=== PATIENT | male | born 1965 | race Caucasian/White ===

== ENCOUNTER 2020-08-19 11:36 | Observation (INO) ==
[2020-08-19] MEDS ORDERED: TUSSIONEX PENNKINETIC SUSP PO PRN (13:29)
[2020-08-19] MEDS ORDERED: REMDESIVIR 200 MG in NS 250 ML IV 250 ML IV NR (13:29)
[2020-08-19] MEDS ORDERED: NS 1/2 1000 ML IV 1,000 ML IV ONE (13:34)
[2020-08-19] MEDS: NS 1/2 1000 ML IV 1,000 ML IV SCH (13:48)
[2020-08-19] MEDS: LEVAQUIN PREMIX IV 750 MG 750 MG/150 ML BAG IV SCH (13:53)
[2020-08-19] MEDS: ROBITUSSIN DM PO SCH ×3 (13:54→21:47)
[2020-08-19] MEDS: TESSALON PERLES PO SCH ×2 (13:54→21:48)
[2020-08-19] MEDS: VSL#3 PO SCH (13:54)
[2020-08-19] MEDS: LOVENOX INJ 30 MG SYR SC SCH ×2 (13:54→21:46)
[2020-08-19] MEDS: DUONEB 0.5 MG/3 MG (3 mL) NEB SCH ×2 (14:20→21:22)
[2020-08-19] MEDS: PULMICORT NEB TX 0.5 MG NEB SCH ×2 (14:20→21:22)
[2020-08-19 14:30] VITALS: BMI 29.8
[2020-08-19 15:00] LABS: CKMB % 1.6 % (<4); CREATINE KINASE 67 Units/L (39-308); CREATINE KINASE MB 1.1 ng/mL (0-4.0); TROPONIN I < 0.02 ng/mL (0-1.5)
[2020-08-19] MEDS: SOLU-Medrol 40 MG VIAL IVP SCH ×2 (21:47→21:48)
[2020-08-20] MEDS: TESSALON PERLES PO SCH ×3 (05:26→21:57)
[2020-08-20] MEDS: SOLU-Medrol 40 MG VIAL IVP SCH ×3 (05:26→21:57)
[2020-08-20 05:33] LABS: ABG BASE EXCESS 2.2 mmol/L (-2.0-2.0); ABG HCO3 26.5 mmol/L (22-26)
[2020-08-20] MEDS: DUONEB 0.5 MG/3 MG (3 mL) NEB SCH (05:35)
[2020-08-20 05:36] LABS: BASOPHILS % (AUTO) 0.3 % (0.2-1.0); EOSINOPHILS % (AUTO) 0.1 % (0.9-2.9); HEMATOCRIT 41.1 % (42.0-54.0); HEMOGLOBIN 14.3 g/dL (13.5-18.0); LYMPHOCYTES # (AUTO) 0.7 X10^3/uL (1.3-2.9); LYMPHOCYTES % (AUTO) 14.3 % (21.0-51.0); MEAN CORPUSCULAR HEMOGLOBIN 30.1 pg (27.0-34.0); MEAN CORPUSCULAR HGB CONC 34.8 g/dL (33.0-35.0); MEAN CORPUSCULAR VOLUME 86.6 fL (80.0-100.0); MEAN PLATELET VOLUME 8.6 fL (7.4-11.0); MONOCYTES # (AUTO) 0.2 x10^3/uL (0.3-0.8); MONOCYTES % (AUTO) 3.3 % (0.0-13.0); NEUTROPHILS # (AUTO) 3.8 x10^3/uL (2.2-4.8); PLATELET COUNT 277 X10^3/uL (150.0-450.0); RED BLOOD COUNT 4.74 X10^6/uL (4.7-6.0); RED CELL DISTRIBUTION WIDTH 12.7 % (11.6-16.5); WHITE BLOOD COUNT 4.6 X10^3/uL (3.6-10.0)
[2020-08-20 05:51] LABS: ALANINE AMINOTRANSFERASE 125 Units/L (12-78); ALBUMIN 3.2 g/dL (3.4-5.0); ALKALINE PHOSPHATASE 84 Units/L (46-116); ASPARTATE AMINO TRANSFERASE 37 Units/L (15-37); BLOOD UREA NITROGEN 12 mg/dL (7-18); CALCIUM 8.7 mg/dL (8.5-10.1); CARBON DIOXIDE 26.6 mmol/L (21-32); CHLORIDE 102 mmol/L (98-107); COR CA(FOR HYPOALB) 9.3 mg/dL (8.5-10.1); COR NA(FOR HYPERGLY) 140 mmol/L (136-145); CREATININE 1.23 mg/dL (0.70-1.30); SODIUM 138 mmol/L (136-145); TOTAL PROTEIN 7.4 g/dL (6.4-8.2); eGFR NON BLACK RACES > 60 (>60)
--- NOTE | 2020-08-20 05:59 | RAD ---
HISTORYSOBSTUDYCHEST, 1 [id number]/10/2020FINDINGSThe trachea is midline. The cardiac silhouette is unremarkable . The lungs are clear without focal infiltrate or effusion. The bony thorax is unremarkable.IMPRESSIONNo acute cardiopulmonary disease.Electronically signed by: Earlene Razo (Aug 20, 2020 05:57:20)
[2020-08-20] MEDS: ROBITUSSIN DM PO SCH ×4 (08:12→21:57)
[2020-08-20] MEDS: REMDESIVIR 100 MG in NS 250 ML IV 250 ML IV SCH (08:12)
[2020-08-20] MEDS: VSL#3 PO SCH (08:12)
[2020-08-20] MEDS: LOVENOX INJ 30 MG SYR SC SCH ×2 (08:12→21:53)
[2020-08-20] MEDS: LEVAQUIN PREMIX IV 750 MG 750 MG/150 ML BAG IV SCH (08:12)
[2020-08-20] MEDS: NS 1/2 1000 ML IV 1,000 ML IV SCH ×2 (08:13→21:53)
[2020-08-20] MEDS ORDERED: NS 1/2 1000 ML IV 1,000 ML IV ONE (08:14)
[2020-08-20] MEDS: PULMICORT NEB TX 0.5 MG NEB SCH ×2 (09:10→21:25)
--- NOTE | 2020-08-20 12:10 | DR.H&P ---
H&P - History & Physical for Day of: H&P Date: 08/19/20 - Chief Complaint Chief Complaint: COUGH, SOB, WEAKNESS, FEVER - History of Present Illness History of Present Illness: IS A 55 YEAR OLD PATIENT OF OURS WHO PRESENTED TO THE HOSPITAL A DIRECT ADMISSION DUE TO COMPLAINTS OF PERSISTENT COUGH, SHORTNESS OF BREATH, WEAKNESS, AND FEVER. SYMPTOMS STARTED ON 08/02/20. HE REPORTS THAT HIS OXYGEN SATURATIONS AT HOME HAVE BEEN RANGING FROM 89-93% ON ROOM AIR. HE HAS FINISHED A MEDROL DOSEPACK, AZITHROMYCIN, AND PLAQUENIL REGIMEN. ON ARRIVAL TO THE HOSPITAL, VITALS WERE 98.5-82-20-90%-119/78. LABS WERE OBTAINED. ABNORMAL LAB VALUES INCLUDE THE FOLLOWING: GLUCOSE 109, FERRITIN 1323, AST 38, ALT 126, CRP 61.20. CARDIAC ENZYMES WERE WITHIN NORMAL LIMITS. COVID-19 POSITIVE. BLOOD AND SPUTUM CULTURES WERE SET UP. AN ABG WAS OBTAINED AND REVEALED: PH 7.500, PC02 37, P02 69, HC03 28.9, 02 SAT 95, BASE EXCESS 5.5, FI02 21.0. A CHEST XRAY WAS OBTAINED AND REVEALED: Patchy right base worse than left base airspace disease consistent with pneumonia such as covid 19. HE WAS STARTED ON 1/2NS AT 75 ML/HR, REMDESIVIR 200MG IV X 1 DOSE THEN 100 MG IV DAILY, LEVAQUIN 750MG IV DAILY, SOLU-MEDROL 80MG IV Q8H, XOPENEX NEB TX TID, PULMICORT NEBS BID, TUSSIONEX 5ML PO Q12H PRN, LOVENOX 30MG SC BID, ROBITUSSIN 10ML PO QID, TESSALON PERLES 200MG PO TID, AND PROBIOTICS. OTHERWISE, WE PLAN TO FOLLOW UP WITH AM LABS AND CHEST XRAY AND CONTINUE TO MONITOR. - Past Medical History Past Medical History: Hypertension - Past Surgical History Surgical History: Appendectomy - Family History Family Medical History: Diabetes Mellitus, Cancer - Social History Does patient currently use any type of tobacco product: No Have you used tobacco products in the last 12 months: No Type of Tobacco Use: None Alcohol Use: None Drug Use: None - Medications Home Medications: No Known Drug Allergies Allergy (Verified 10/25/19 10:51) CONTINUE taking the following medications aspirin 81 mg PO Q OTHER DAY 08/19/20 [History] atorvastatin [Lipitor] 10 mg PO QHS 08/19/20 [History] hydrochlorothiazide 25 mg PO QAM 08/19/20 [History] lisinopril [Prinivil] 10 mg PO DAILY 08/19/20 [History] metoprolol succinate [Toprol XL] 12.5 mg PO HS 08/19/20 [History] multivitamin with iron-mineral [[facility]] 1 tab PO DAILY 08/19/20 [History] - Review of Systems Constitutional: Fever, Chills, Weakness Eyes: No Symptoms Reported ENT: No Symptoms Reported Respiratory: See HPI, Cough, Shortness of Breath Cardiovascular: No Symptoms Reported Gastrointestinal: No Symptoms Reported Genitourinary: No Symptoms Reported Musculoskeletal: No Symptoms Reported Skin: No Symptoms Reported Neurological: Weakness - Physical Exam Vital Signs: Temperature 98.3 F Pulse Rate 113 Respiratory Rate 20 Blood Pressure 129/75 O2 Sat by Pulse Oximetry 93 Oriented: Normal Eyes: Normal Ear: Normal Nose: Normal Throat: Normal Respiratory: Diminished Throughout Cardiovascular: Normal : Normal Auscultation: Bowel Sounds: Normal Palpation: Normal Tenderness: Normal Skin: Normal Musculoskeletal: Normal Psychiatric: Normal Mood Description: Calm Affect: Normal Speech Pattern: Clear - Assessment/Plan (1) Pneumonia Qualifiers: Pneumonia type: due to unspecified organism Laterality: bilateral Lung location: unspecified part of lung Qualified Code(s): J18.9 - Pneumonia, unspecified organism Status: Acute Plan: ADMIT, 1/2NS AT 75 ML/HR, REMDESIVIR 200MG IV X 1 DOSE THEN 100 MG IV DAILY, LEVAQUIN 750MG IV DAILY, SOLU-MEDROL 80MG IV Q8H, XOPENEX NEB TX TID, PULMICORT NEBS BID, TUSSIONEX 5ML PO Q12H PRN, LOVENOX 30MG SC BID, ROBITUSSIN 10ML PO QID, TESSALON PERLES 200MG PO TID, AND PROBIOTICS. (2) COVID-19 Status: Acute (3) Hypoxia Status: Acute - Allergies Allergies/Adverse Reactions: Allergies Allergy/AdvReac Type Severity Reaction Status Date / Time No Known Drug Allergies Allergy Verified 10/25/19 10:51
[2020-08-20] MEDS: XOPENEX 1.25 MG/3 ML NEBULE NEB SCH ×2 (13:45→21:25)
[2020-08-21] MEDS ORDERED: NS 1/2 1000 ML IV 1,000 ML IV ONE (04:16)
[2020-08-21 05:33] LABS: BASOPHILS % (AUTO) 0.3 % (0.2-1.0); HEMATOCRIT 37.6 % (42.0-54.0); HEMOGLOBIN 12.8 g/dL (13.5-18.0); LYMPHOCYTES # (AUTO) 1.1 X10^3/uL (1.3-2.9); LYMPHOCYTES % (AUTO) 8.1 % (21.0-51.0); MEAN CORPUSCULAR HEMOGLOBIN 29.8 pg (27.0-34.0); MEAN CORPUSCULAR HGB CONC 34.2 g/dL (33.0-35.0); MEAN CORPUSCULAR VOLUME 87.1 fL (80.0-100.0); MEAN PLATELET VOLUME 8.9 fL (7.4-11.0); MONOCYTES # (AUTO) 0.8 x10^3/uL (0.3-0.8); MONOCYTES % (AUTO) 5.7 % (0.0-13.0); NEUTROPHILS # (AUTO) 11.7 x10^3/uL (2.2-4.8); NEUTROPHILS % (AUTO) 85.9 % (42.0-75.0); PLATELET COUNT 329 X10^3/uL (150.0-450.0); RED BLOOD COUNT 4.31 X10^6/uL (4.7-6.0); RED CELL DISTRIBUTION WIDTH 12.9 % (11.6-16.5)
[2020-08-21 05:43] LABS: ALANINE AMINOTRANSFERASE 108 Units/L (12-78); ALBUMIN 2.9 g/dL (3.4-5.0); ALKALINE PHOSPHATASE 78 Units/L (46-116); ASPARTATE AMINO TRANSFERASE 28 Units/L (15-37); BLOOD UREA NITROGEN 16 mg/dL (7-18); CALCIUM 8.7 mg/dL (8.5-10.1); CHLORIDE 104 mmol/L (98-107); COR CA(FOR HYPOALB) 9.6 mg/dL (8.5-10.1); COR NA(FOR HYPERGLY) 144 mmol/L (136-145); CREATININE 1.16 mg/dL (0.70-1.30); SODIUM 140 mmol/L (136-145); TOTAL PROTEIN 6.5 g/dL (6.4-8.2); eGFR NON BLACK RACES > 60 (>60)
[2020-08-21 05:50] LABS: CARBON DIOXIDE 24.8 mmol/L (21-32)
[2020-08-21 05:51] LABS: WHITE BLOOD COUNT 13.6 X10^3/uL (3.6-10.0)
[2020-08-21] MEDS: NS 1/2 1000 ML IV 1,000 ML IV SCH (05:51)
[2020-08-21] MEDS: XOPENEX 1.25 MG/3 ML NEBULE NEB SCH (05:55)
--- NOTE | 2020-08-21 06:31 | RAD ---
HISTORYSOBSTUDYCHEST, 1 VIEWCOMPARISONOne day priorTECHNIQUEAP chest.FINDINGSCardiac and mediastinal contours are stable. Stable mild bibasilar patchy opacities. No pleural effusion or pneumothorax.IMPRESSIONNo significant change.Electronically signed by: Checo Mancini (Aug 21, 2020 06:29:51)
[2020-08-21] MEDS: TESSALON PERLES PO SCH ×2 (06:55→13:22)
[2020-08-21] MEDS: SOLU-Medrol 40 MG VIAL IVP SCH ×2 (06:55→13:20)
[2020-08-21] MEDS: PULMICORT NEB TX 0.5 MG NEB SCH (09:10)
[2020-08-21] MEDS: LEVAQUIN PREMIX IV 750 MG 750 MG/150 ML BAG IV SCH (09:40)
[2020-08-21] MEDS: LOVENOX INJ 30 MG SYR SC SCH (09:40)
[2020-08-21] MEDS: ROBITUSSIN DM PO SCH ×2 (09:41→13:20)
[2020-08-21] MEDS: VSL#3 PO SCH (09:41)
[2020-08-21] MEDS: REMDESIVIR 100 MG in NS 250 ML IV 250 ML IV SCH (09:41)
[2020-08-21 12:07] VITALS: BP 134/63
[2020-08-21] MEDS ORDERED: NS 250 ML IV 250 ML IV ONE (13:29)
[2020-08-21] MEDS ORDERED: REMDESIVIR IV ONE (13:29)
[2020-08-21] MEDS ORDERED: REMDESIVIR 200 MG in NS 250 ML IV 250 ML IV NR (14:00)
== END 2020-08-21 15:45 | disposition home or self-care (01) ==
LOC: ICU
PROVIDERS: ADMIT Internal Medicine; ATTEND Internal Medicine
DX: U07.1 COVID-19; R79.89 Other specified abnormal findings of blood chemistry; R79.82 Elevated C-reactive protein (CRP); R73.09 Other abnormal glucose; J12.89 Other viral pneumonia; R06.02 Shortness of breath

== ENCOUNTER 2024-06-09 11:41 | Observation (INO) ==
[2024-06-09 13:51] LABS: ABG BASE EXCESS 13.5 mmol/L (-2.0-2.0)
[2024-06-09 13:53] LABS: ABG HCO3 36.6 mmol/L (22-26)
[2024-06-09] MEDS ORDERED: TYLENOL 325 MG TAB PO PRN (13:58)
[2024-06-09 14:20] LABS: BASOPHILS % (AUTO) 0.2 % (0.2-1.0); EOSINOPHILS % (AUTO) 0.1 % (0.9-2.9); HEMATOCRIT 44.5 % (42.0-54.0); HEMOGLOBIN 14.9 g/dL (13.5-18.0); LYMPHOCYTES % (AUTO) 8.7 % (21.0-51.0); MEAN CORPUSCULAR HEMOGLOBIN 29.4 pg (27.0-34.0); MEAN CORPUSCULAR HGB CONC 33.4 g/dL (33.0-35.0); MEAN CORPUSCULAR VOLUME 87.9 fL (80.0-100.0); MEAN PLATELET VOLUME 8.1 fL (7.4-11.0); MONOCYTES # (AUTO) 1.1 x10^3/uL (0.3-0.8); NEUTROPHILS # (AUTO) 9.8 x10^3/uL (2.2-4.8); PLATELET COUNT 246 X10^3/uL (150.0-450.0); RED BLOOD COUNT 5.06 X10^6/uL (4.7-6.0); RED CELL DISTRIBUTION WIDTH 13.3 % (11.6-16.5)
[2024-06-09] MEDS: ZITHROMAX INJ 500 MG VIAL 500 MG in NS 250 ML IV 250 ML IV SCH (14:30)
[2024-06-09] MEDS: NS 1,000 ML IV 1,000 ML IV SCH (14:30)
[2024-06-09] MEDS: SOLU-Medrol 40 MG VIAL IVP SCH (14:30)
[2024-06-09 14:31] LABS: ALANINE AMINOTRANSFERASE 384 Units/L (12-78); ALBUMIN 2.8 g/dL (3.4-5.0); ALKALINE PHOSPHATASE 219 Units/L (46-116); ASPARTATE AMINO TRANSFERASE 88 Units/L (15-37); BLOOD UREA NITROGEN 10 mg/dL (7-18); CALCIUM 8.9 mg/dL (8.5-10.1); CARBON DIOXIDE 36.9 mmol/L (21-32); CHLORIDE 90 mmol/L (98-107); COR CA(FOR HYPOALB) 9.9 mg/dL (8.5-10.1); COR NA(FOR HYPERGLY) 134 mmol/L (136-145); CREATININE 1.13 mg/dL (0.70-1.30); GLUCOSE 195 mg/dL (65-99); POTASSIUM 3.2 mmol/L (3.5-5.1); SODIUM 132 mmol/L (136-145); TOTAL PROTEIN 7.9 g/dL (6.4-8.2); eGFR NON BLACK RACES > 60 (>60)
[2024-06-09] MEDS: NORCO 5/325 MG TAB PO PRN (15:01)
--- NOTE | 2024-06-09 15:56 | RAD ---
EXAMINATION: CHEST, PA/LAT ADULT HISTORY: MD ORDER; HTN, APPENDIX . COMPARISON STUDY: 08/21/2020 TECHNIQUE: Two views of the chest are submitted for interpretation. FINDINGS: . The heart size is normal. The mediastinal structures are within normal limits. No acute infiltrat es. Costophrenic recesses are sharp. There are degenerative changes in the thoracic spine. There is no pneumothorax. IMPRESSION: NO ACUTE PROCESS. THIS IS AN ELECTRONICALLY VERIFIED FINAL REPORT 06/09/2024 3:53 PM - Electronically signed by Ayaz Gusman MD
[2024-06-09 16:05] LABS: BILIRUBIN,URINE NEGATIVE (NEGATIVE); BLOOD/HEMOGLOBIN,URINE NEGATIVE (NEGATIVE); GLUCOSE, URINE NEGATIVE (NEGATIVE); KETONES,URINE NEGATIVE (NEGATIVE); LEUKOCYTE ESTERASE ,URINE NEGATIVE (NEGATIVE); NITRITES,URINE NEGATIVE (NEGATIVE); PROTEIN,URINE NEGATIVE (NEGATIVE); UROBILINOGEN,URINE NORMAL (NORMAL)
[2024-06-09 16:08] LABS: APPEARANCE,URINE CLEAR (CLEAR); COLOR,URINE YELLOW (YELLOW)
[2024-06-09] MEDS ORDERED: DUONEB 0.5 MG/3 MG (3 mL) NEB SCH (17:00)
[2024-06-09] MEDS: XOPENEX 1.25 MG/3 ML NEBULE NEB SCH (17:33)
[2024-06-09] MEDS ORDERED: FIORICET TAB PO PRN (17:35)
[2024-06-09] MEDS ORDERED: PULMICORT NEB TX 0.5 MG NEB ONE (19:59)
[2024-06-09] MEDS: PULMICORT NEB TX 0.5 MG NEB SCH (20:14)
[2024-06-09] MEDS: TOPROL XL PO SCH (20:28)
[2024-06-09] MEDS: ZETIA TAB 10 MG PO SCH (20:31)
[2024-06-10 06:41] LABS: BASOPHILS % (AUTO) 0.3 % (0.2-1.0); HEMATOCRIT 39.1 % (42.0-54.0); HEMOGLOBIN 13.4 g/dL (13.5-18.0); LYMPHOCYTES % (AUTO) 9.3 % (21.0-51.0); MEAN CORPUSCULAR HEMOGLOBIN 29.8 pg (27.0-34.0); MEAN CORPUSCULAR HGB CONC 34.2 g/dL (33.0-35.0); MEAN CORPUSCULAR VOLUME 87.1 fL (80.0-100.0); MEAN PLATELET VOLUME 8.5 fL (7.4-11.0); MONOCYTES # (AUTO) 0.6 x10^3/uL (0.3-0.8); MONOCYTES % (AUTO) 5.4 % (0.0-13.0); NEUTROPHILS # (AUTO) 9.1 x10^3/uL (2.2-4.8); PLATELET COUNT 233 X10^3/uL (150.0-450.0); RED BLOOD COUNT 4.49 X10^6/uL (4.7-6.0); WHITE BLOOD COUNT 10.7 X10^3/uL (3.6-10.0)
[2024-06-10] MEDS ORDERED: ASPIRIN EC 81 MG PO SCH (07:00)
[2024-06-10 07:03] LABS: ALANINE AMINOTRANSFERASE 314 Units/L (12-78); ALBUMIN 2.4 g/dL (3.4-5.0); ALKALINE PHOSPHATASE 188 Units/L (46-116); ASPARTATE AMINO TRANSFERASE 68 Units/L (15-37); BLOOD UREA NITROGEN 16 mg/dL (7-18); CALCIUM 8.6 mg/dL (8.5-10.1); CARBON DIOXIDE 32.1 mmol/L (21-32); CHLORIDE 95 mmol/L (98-107); COR CA(FOR HYPOALB) 9.9 mg/dL (8.5-10.1); COR NA(FOR HYPERGLY) 137 mmol/L (136-145); CREATININE 1.15 mg/dL (0.70-1.30); GLUCOSE 259 mg/dL (65-99); MAGNESIUM 2.2 mg/dL (2.0-2.9); POTASSIUM 4.1 mmol/L (3.5-5.1); SODIUM 133 mmol/L (136-145); TOTAL PROTEIN 6.8 g/dL (6.4-8.2); eGFR NON BLACK RACES > 60 (>60)
--- NOTE | 2024-06-10 08:55 | DR.H&P ---
H&P History & Physical for Day of: H&P Date: 06/09/24 Chief Complaint Chief Complaint: WEAKNESS, VOMITING, HEADACHES History of Present Illness History of Present Illness: PT IS 58 WM, DIRECT ADMIT WITH FAILED OUTPT TREATMENT OF COVID 19 VIRAL ILLNESS WITH HYPONATREMIA, DEHYDRATION, N/V AND INTRACTABLE LOCO. PT CO LOCO SEVERE FOR SEVERAL DAYS. PT WAS SEEN IN [facility] AND [facility] ~7-10DAYS AGO AND GIVEN IM ROCEPHIN AND PO ATBX WITH NOT IMPROVEMENT. PT CO VOMITING ONSET THIS WEEK AND WAS RE-EVALATED WITH [facility], ABNORMAL LABS AND INSTRUCTED TO REPORT TO HOSPITAL. Past Medical History Past Medical History: Hypertension Past Surgical History Surgical History: Appendectomy Family History Family Medical History: Cancer Social History Does patient currently use any type of tobacco product: No Have you used tobacco products in the last 12 months: No Type of Tobacco Use: None Does any household member use tobacco: No Alcohol Use: Occasionally Drug Use: None Medications Home Medications: Home Medications Medication Instructions Recorded Confirmed Type aspirin 81 mg tablet,delayed 81 mg PO Q OTHER DAY 06/09/24 06/09/24 History release ezetimibe 10 mg tablet 10 mg PO QHS Elevated bad 06/09/24 06/09/24 History cholesterol metoprolol succinate 25 mg 12.5 mg PO QHS High blood pressure 06/09/24 06/09/24 History tablet,extended release 24 hr (Toprol XL) Allergies Allergies Allergy/AdvReac Type Severity Reaction Status Date / Time No Known Drug Allergies Allergy Unknown Verified 12/28/22 13:06 Labs 06/10/24 05:46 06/10/24 05:46 Labs: 06/09/24 13:30 Sputum - Expectorated Sputum - Final Laboratory WBC 10.7 X10^3/uL (3.6-10.0) H 06/10/24 05:46 RBC 4.49 X10^6/uL (4.7-6.0) L 06/10/24 05:46 Hgb 13.4 g/dL (13.5-18.0) L 06/10/24 05:46 Hct 39.1 % (42.0-54.0) L 06/10/24 05:46 MCV 87.1 fL (80.0-100.0) 06/10/24 05:46 MCH 29.8 pg (27.0-34.0) 06/10/24 05:46 MCHC 34.2 g/dL (33.0-35.0) 06/10/24 05:46 RDW 13.0 % (11.6-16.5) 06/10/24 05:46 Plt Count 233 X10^3/uL (150.0-450.0) 06/10/24 05:46 MPV 8.5 fL (7.4-11.0) 06/10/24 05:46 Neut % (Auto) 85.0 % (42.0-75.0) H 06/10/24 05:46 Lymph % (Auto) 9.3 % (21.0-51.0) L 06/10/24 05:46 Kershaw % (Auto) 5.4 % (0.0-13.0) 06/10/24 05:46 Eos % (Auto) 0.0 % (0.9-2.9) L 06/10/24 05:46 Baso % (Auto) 0.3 % (0.2-1.0) 06/10/24 05:46 Neut # (Auto) 9.1 x10^3/uL (2.2-4.8) H 06/10/24 05:46 Lymph # (Auto) 1.0 X10^3/uL (1.3-2.9) L 06/10/24 05:46 Kershaw # (Auto) 0.6 x10^3/uL (0.3-0.8) 06/10/24 05:46 Eos # (Auto) 0.0 x10^3/uL (0.0-0.2) 06/10/24 05:46 Baso # (Auto) 0.0 X10^3/uL (0.0-0.1) 06/10/24 05:46 Absolute Nucleated RBC 0.0 /100WBC 06/10/24 05:46 D-Dimer 2.00 ug/ml (0.0-0.57) H 06/09/24 14:00 Sample Site Rbra 06/09/24 13:48 ABG pH 7.580 (7.35-7.45) H* 06/09/24 13:48 ABG pCO2 39.0 mmHg (35.0-45.0) 06/09/24 13:48 ABG pO2 70.0 mmHg (80.0-100.0) L 06/09/24 13:48 ABG HCO3 36.6 mmol/L (22-26) H* 06/09/24 13:48 ABG O2 Saturation 96.0 % (90-100) 06/09/24 13:48 ABG Base Excess 13.5 mmol/L (-2.0-2.0) H 06/09/24 13:48 Arsenio Test N/a 06/09/24 13:48 A-a Gradient 31.0 mmHg 06/09/24 13:48 FiO2 21.0 06/09/24 13:48 Blood Gas Comments Pt amada well eb 06/09/24 13:48 Sodium 133 mmol/L (136-145) L 06/10/24 05:46 Corrected Sodium 137 mmol/L (136-145) 06/10/24 05:46 Potassium 4.1 mmol/L (3.5-5.1) 06/10/24 05:46 Chloride 95 mmol/L (98-107) L 06/10/24 05:46 Carbon Dioxide 32.1 mmol/L (21-32) H 06/10/24 05:46 BUN 16 mg/dL (7-18) 06/10/24 05:46 Creatinine 1.15 mg/dL (0.70-1.30) 06/10/24 05:46 Est GFR (MDRD) Af Amer > 60 (>60) 06/10/24 05:46 Est GFR (MDRD) Non-Af > 60 (>60) 06/10/24 05:46 Glucose 259 mg/dL (65-99) H 06/10/24 05:46 Hemoglobin A1c 6.1 % 06/10/24 05:46 Calcium 8.6 mg/dL (8.5-10.1) 06/10/24 05:46 Corrected Calcium 9.9 mg/dL (8.5-10.1) 06/10/24 05:46 Magnesium 2.2 mg/dL (2.0-2.9) 06/10/24 05:46 Total Bilirubin 0.60 mg/dL (0.2-1.0) 06/10/24 05:46 AST 68 Units/L (15-37) H 06/10/24 05:46 ALT 314 Units/L (12-78) H 06/10/24 05:46 Alkaline Phosphatase 188 Units/L (46-116) H 06/10/24 05:46 Total Protein 6.8 g/dL (6.4-8.2) 06/10/24 05:46 Albumin 2.4 g/dL (3.4-5.0) L 06/10/24 05:46 Globulin 4.4 g/dL (2.5-4.5) 06/10/24 05:46 Albumin/Globulin Ratio 0.5 Ratio (1.1-2.1) L 06/10/24 05:46 Specimen Type Clean catch urine 06/09/24 13:30 Urine Color Yellow (YELLOW) 06/09/24 13:30 Urine Appearance Clear (CLEAR) 06/09/24 13:30 Urine pH 6.0 (5.0 - 8.0) 06/09/24 13:30 Ur Specific Dixon 1.020 (1.000-1.030) 06/09/24 13:30 Urine Protein Negative (NEGATIVE) 06/09/24 13:30 Urine Glucose (UA) Negative (NEGATIVE) 06/09/24 13:30 Urine Ketones Negative (NEGATIVE) 06/09/24 13:30 Urine Blood Negative (NEGATIVE) 06/09/24 13:30 Urine Nitrite Negative (NEGATIVE) 06/09/24 13:30 Urine Bilirubin Negative (NEGATIVE) 06/09/24 13:30 Urine Urobilinogen Normal (NORMAL) 06/09/24 13:30 Ur Leukocyte Esterase Negative (NEGATIVE) 06/09/24 13:30 SARS-CoV-2 (PCR) Negative (NEGATIVE) 06/09/24 15:03 Influenza Type A (PCR) Negative (NEGATIVE) 06/09/24 15:03 Influenza Type B (PCR) Negative (NEGATIVE) 06/09/24 15:03 RSV (PCR) Negative (NEGATIVE) 06/09/24 15:03 Review of Systems Constitutional: Fever, Sweats, Weakness and Malaise Eyes: No Symptoms Reported ENT: No Symptoms Reported Respiratory: No Symptoms Reported Cardiovascular: No Symptoms Reported Gastrointestinal: Vomiting Genitourinary: No Symptoms Reported Musculoskeletal: Neck Pain Skin: No Symptoms Reported Neurological: Other (HEADACHE) Physical Exam Vital Signs: Vital Signs Temperature 98.3 F Pulse Rate [Left Brachial] 78 Respiratory Rate 18 Respiratory Rate 20 Blood Pressure [Right Arm] 136/77 O2 Sat by Pulse Oximetry 94 Oriented: Normal Eyes: Normal Ear: Normal Nose: Discharge Respiratory: RLL Diminished and LLL Diminished Cardiovascular: Normal Auscultation: Bowel Sounds: Normal Tenderness: Epigastric and Mild Skin: Decreased Turgur Musculoskeletal: Tender (NECK) Psychiatric: Normal Mood Description: Calm Speech Pattern: Clear and Appropriate Assessment/Plan (1) Pneumonia: Qualifiers: Pneumonia type: due to unspecified organism Laterality: bilateral Lung location: unspecified part of lung Qualified Code(s): J18.9 - Pneumonia, unspecified organism Narrative Support Text: HX COVID POSITIVE ~7-10 DAYS AGO ADMIT, IV HYDRATION FOR ELECTROLYTE REPLACEMENT CXR ON ADMISSION, ABG ON ADMISSION VERIFY HOME MEDICATION IV ATBX, RESP THERAPY PRN PAIN CONTROL Status: Acute (2) Hypertension: Status: None (3) Hyponatremia: Status: Acute (4) Headache: Status: Acute
[2024-06-10] MEDS ORDERED: PATIENT'S HOME MEDICATION (Losartan 25 mg tablet) PO SCH (09:00)
[2024-06-10] MEDS: HYDROCHLOROTHIAZIDE 25 MG TAB PO SCH (09:16)
[2024-06-10] MEDS: ASPIRIN 81 MG CHEWTAB PO SCH (09:16)
[2024-06-10] MEDS: COZAAR PO SCH (09:16)
[2024-06-10] MEDS: PROTONIX INJ 40 MG VIAL IVP SCH (09:17)
[2024-06-10] MEDS: ROCEPHIN VIAL 1 GRAM 1 G in NS 100 ML IV 100 ML IV SCH (11:40)
--- NOTE | 2024-06-10 12:55 | CT ---
EXAMINATION:CTA, CHESTHISTORY:r/o PE, elevated ddimer; .COMPARISON:CTA chest 01/13/2024TECHNIQUE:Routine axial imaging of the chest was performed. CT angiography of the chest was performed with maximum intensity projection images and volume rendered images on a workstation.. The above CT scan was done with automated exposure control and the mA and kV was adjusted to obtain quality images according to patient size.FINDINGS:Lungs: Atelectasis in the lung bases. No acute infiltrates, new pulmonary nodules, interstitial changes or ground-glass opacities. 3 mm pleural-based nodule in the right middle lobe unchanged.Central Airways: No obstructing endobronchial lesions.Pleura: Trace pleural fluid bilaterally.Thoracic Aorta: Ectasia. Atherosclerotic calcification. No dissection. Ascending aorta measures 4.1 x 4.1 cm. This finding is stable.Main Pulmonary Trunk: Normal diameter. No CT angiography evidence for acute pulmonary embolus. Respiratory motion limits evaluation of small order branches.Lymph Nodes: No pathologic hilar, axillary or mediastinal lymphadenopathyHeart/Pericardium: Normal heart size. No significant pericardial effusion.Liver: No acute findings.GB/Biliary: No gallstones or dilated ductsSpleen: Normal size and density. Splenule along the upper polePancreas: No acute findings as visualizedAdrenal Glands: No massKidneys no hydronephrosis.Abdominal Aorta: Tapers normallyRetroperitoneum: No pathologically enlarged lymph nodesBowel/Peritoneal Cavity: No acute findings as visualizedOsseous Structures: Degenerative changes in the spine. No acute findingsOther: NoneIMPRESSION:No CT angiography evidence for acute pulmonary embolus or aortic dissection.Ectasia within the ascending aorta. This measures 4.1 x 4.1 cm. Findings are stable.Atelectasis in the lung bases with trace pleural fluid.The above CT scan was done with automated exposure control and the mA and kV was adjusted to obtain quality images according to patient sizeTHIS IS AN ELECTRONICALLY VERIFIED FINAL REPORT06/10/2024 12:52 PM - Electronically signed by Ayaz Gusman MD
--- NOTE | 2024-06-10 13:00 | CT ---
EXAM:CT HEAD WITHOUT CONTRASTHISTORY:headaches;COMPARISON:Non e.TECHNIQUE:Axial CT images were obtained through the brain without contrast.All CT scans at this facility use dose modulation, iterative reconstruction, and/or weight based dosing when appropriate to reduce radiation dose to as low as reasonably achievable.FINDINGS:BRAIN: No evidence of acute infarct intra or extraaxial hemorrhage mass effect or hydrocephalus.CALVARIUM: NormalADDITIONAL FINDINGS: The visualized paranasal sinuses and mastoid air cells are clear. Orbits are grossly unremarkable.IMPRESSION:No evidence of acute intracranial process.THIS IS AN ELECTRONICALLY VERIFIED FINAL REPORT06/10/2024 12:57 PM - Electronically signed by Berlin Gomez MD
[2024-06-10] MEDS: NEURONTIN CAP 100 MG PO SCH (13:46)
[2024-06-10] MEDS ORDERED: TOPROL XL PO SCH (21:00)
[2024-06-10] MEDS ORDERED: ZETIA TAB 10 MG PO SCH (21:00)
[2024-06-11 06:12] LABS: BASOPHILS % (AUTO) 0.4 % (0.2-1.0); EOSINOPHILS % (AUTO) 0.5 % (0.9-2.9); HEMATOCRIT 35.4 % (42.0-54.0); HEMOGLOBIN 12.2 g/dL (13.5-18.0); LYMPHOCYTES # (AUTO) 1.7 X10^3/uL (1.3-2.9); LYMPHOCYTES % (AUTO) 19.2 % (21.0-51.0); MEAN CORPUSCULAR HGB CONC 34.6 g/dL (33.0-35.0); MEAN CORPUSCULAR VOLUME 86.8 fL (80.0-100.0); MEAN PLATELET VOLUME 7.8 fL (7.4-11.0); MONOCYTES # (AUTO) 0.8 x10^3/uL (0.3-0.8); MONOCYTES % (AUTO) 8.8 % (0.0-13.0); NEUTROPHILS # (AUTO) 6.2 x10^3/uL (2.2-4.8); NEUTROPHILS % (AUTO) 71.1 % (42.0-75.0); PLATELET COUNT 191 X10^3/uL (150.0-450.0); RED BLOOD COUNT 4.07 X10^6/uL (4.7-6.0); RED CELL DISTRIBUTION WIDTH 13.1 % (11.6-16.5); WHITE BLOOD COUNT 8.7 X10^3/uL (3.6-10.0)
[2024-06-11 06:23] LABS: ALANINE AMINOTRANSFERASE 262 Units/L (12-78); ALBUMIN 2.2 g/dL (3.4-5.0); ALKALINE PHOSPHATASE 174 Units/L (46-116); ASPARTATE AMINO TRANSFERASE 57 Units/L (15-37); BLOOD UREA NITROGEN 14 mg/dL (7-18); CARBON DIOXIDE 33.6 mmol/L (21-32); CHLORIDE 97 mmol/L (98-107); COR CA(FOR HYPOALB) 9.4 mg/dL (8.5-10.1); COR NA(FOR HYPERGLY) 137 mmol/L (136-145); CREATININE 1.04 mg/dL (0.70-1.30); GLUCOSE 191 mg/dL (65-99); POTASSIUM 3.5 mmol/L (3.5-5.1); SODIUM 135 mmol/L (136-145); eGFR NON BLACK RACES > 60 (>60)
[2024-06-11] MEDS: OMNIPAQUE 350 mg/mL 100 mL BTL 100 ML ONE (06:56)
--- NOTE | 2024-06-11 07:29 | RAD ---
EXAM: Portable AP chest HISTORY: COVID COMPARISON: 06/09/2024 FINDINGS: The heart is borderline enlarged, accentuated by nonstandard projection. The lungs and pleural spac es are clear. There is no definite pneumonia, CHF or pleural effusion. IMPRESSION: No acute findings. THIS IS AN ELECTRONICALLY VERIFIED FINAL REPORT 06/11/2024 7:26 AM - Electronically signed by Wellington Lindsey MD
[2024-06-11 09:27] VITALS: RESP 20
[2024-06-11 12:18] VITALS: BP 131/70; PULSE 77; TEMP 98; O2SAT 96
--- NOTE | 2024-06-11 14:31 | RAD ---
EXAMINATION: CHEST, 1 VIEW HISTORY: HYPOXIA; . COMPARISON STUDY: Chest x-ray 06/11/2024 TECHNIQUE: Single frontal view of the chest FINDINGS: Lungs are expanded. Mild cardiac silhouette enlargement. Normal pulmonary vascular pattern. CP ang les are sharp. Bones are intact. IMPRESSION: Mild cardiac silhouette enlargement. THIS IS AN ELECTRONICALLY VERIFIED FINAL REPORT 06/11/2024 2:27 PM - Electronically signed by Georgette Jackson MD
== END 2024-06-11 15:43 | disposition home or self-care (01) ==
LOC: MED/SURG
PROVIDERS: ADMIT Internal Medicine; ATTEND Internal Medicine
DX: E87.1 Hypo-osmolality and hyponatremia; I10 Essential (primary) hypertension; E86.0 Dehydration; Z29.89 Encounter for other specified prophylactic measures; R51.9 Headache, unspecified; A08.39 Other viral enteritis; Z20.822 Contact with and (suspected) exposure to COVID-19; R06.02 Shortness of breath; R79.1 Abnormal coagulation profile; U09.9 Post COVID-19 condition, unspecified; J18.8 Other pneumonia, unspecified organism; R53.1 Weakness; R73.09 Other abnormal glucose; E87.6 Hypokalemia